=== PATIENT | female | born 1970 | race Caucasian/White ===

== ENCOUNTER → 2018-08-14 | Outpatient (CLI) | payer BC ==
--- NOTE | 2018-08-15 11:26 | MM ---
Reason for exam: screening (asymptomatic). Last mammogram was performed 7 years and 7 months ago. History: Family history of breast cancer in maternal grandmother and breast cancer in maternal aunt at age 32. Benign excisional biopsy of the left breast, 1991. Physical Findings: A clinical breast exam by your physician is recommended on an annual basis and results should be correlated with mammographic findings. MG 3D Screening Mammo W/Cad Bilateral CC and MLO view(s) were taken. Prior study comparison: January 04, 2011, bilateral digital screening mammo w/CAD. The breast tissue is heterogeneously dense. This may lower the sensitivity of mammography. There are layering calcifications bilaterally. Nodular density lower central left breast anterior third position. ASSESSMENT: Incomplete: need additional imaging evaluation, BI-RAD 0 RECOMMENDATION: Special view mammogram and ultrasound of the left breast. [facility] will attempt to contact patient to return for supplemental views and ultrasound.
== END | disposition home or self-care (01) ==
LOC: RADMAMWWP 07:10
PROVIDERS: ATTEND Obstetrics & Gynecology
DX: Z12.31 Encounter for screening mammogram for malignant neoplasm of breast (principal)
CPT/HCPCS: 77063; 77067

== ENCOUNTER → 2018-08-22 | Outpatient (CLI) | payer BC ==
--- NOTE | 2018-08-25 08:59 | MM ---
Reason for exam: additional evaluation requested from abnormal screening. Last mammogram was performed less than 1 month ago. History: Family history of breast cancer in maternal grandmother and breast cancer in maternal aunt at age 32. Benign excisional biopsy of the left breast, 1991. Physical Findings: Nurse Summary: 1cm nodule in the left breast areola (nurse ms). MG 3D Work Up W/Cad LT Spot compression CC, spot compression MLO, and LM view(s) were taken of the left breast. Prior study comparison: August 14, 2018, bilateral MG 3d screening mammo w/cad. January 04, 2011, bilateral digital screening mammo w/CAD. There is a persistent mass at anterior depth in the right lower inner quadrant. There are diffuse predominantly layering calcifications. These results were verbally communicated with the patient and result sheet given to the patient on 08/22/18. ASSESSMENT: Incomplete: need additional imaging evaluation, BI-RAD 0 RECOMMENDATION: Ultrasound of the left breast. (lower inner quadrant and palpable)
--- NOTE | 2018-08-25 09:01 | USB ---
Reason for exam: additional evaluation requested from abnormal screening. History: Family history of breast cancer in maternal grandmother and breast cancer in maternal aunt at age 32. Benign excisional biopsy of the left breast, 1991. US Breast Workup Limited LT Left limited breast ultrasound including focal area of concern, retroareolar and axilla demonstrates a 1.3 x 0.6 x 1.2cm cystic cluster at 12 o'clock, a 1.1 x 0.7 x 0.8cm cystic cluster at 1 o'clock BB and a 0.7 x 0.4 x 0.7cm cystic cluster at 9 o'clock. Appear as benign cyst in dense tissue. Multiple cystic areas visualized. These results were verbally communicated with the patient and result sheet given to the patient on 08/22/18. ASSESSMENT: Benign, BI-RAD 2 RECOMMENDATION: Return to routine screening mammogram schedule for both breasts.
== END | disposition home or self-care (01) ==
LOC: RADMAMWWP 13:44
PROVIDERS: ATTEND Obstetrics & Gynecology
DX: R92.8 Other abnormal and inconclusive findings on diagnostic imaging of breast (principal)
CPT/HCPCS: 77061; 77065

== ENCOUNTER 2024-03-06 10:11 | Day surgery (SDC) | payer BC ==
[2024-03-06] MEDS: IV FLUID CONTINUATION 1,000 ML IV ONE (10:22)
[2024-03-06 10:32] VITALS: TEMP 97.1
[2024-03-06] MEDS: LACTATED RINGERS 1,000 ML IV SCH (10:37)
[2024-03-06] MEDS ORDERED: PROPOFOL 10 MG/ML 20 ML VIAL IV ONE (10:53)
--- NOTE | 2024-03-06 11:14 | P.PCN ---
Date of Procedure: 03/06/24 Procedure(s) Performed: BRIEF HISTORY: Patient is a 54-year-old pleasant white female scheduled for an elective colonoscopy as a part of screening for colon cancer. PROCEDURE PERFORMED: Colonoscopy cold snare polypectomy. PREOPERATIVE DIAGNOSIS: Screening for colon cancer. IV sedation per Anesthesia. PROCEDURE: After informed consent was obtained, the patient, was brought into the endoscopy unit. IV sedation was administered by Anesthesia under continuous monitoring. Digital rectal examination was normal. Initially the Olympus CF-160 flexible video colonoscope was then inserted in the rectum, gradually advanced into the cecum without any difficulty. Careful examination was performed as the scope was gradually being withdrawn. Ileocecal valve and the appendiceal orifice were visualized and appeared normal. Prep was excellent. Mucosa of the cecum, ascending colon, appeared normal. The transverse colon there is a 5 mm polyp that was removed by cold snare polypectomy. History transverse colon, descending colon, sigmoid colon, and rectum appeared normal. Proximal rectum there was a 5 mm polyp removed by cold snare polypectomy. Retroflexion was performed in the rectum and no lesions were seen. The patient tolerated the procedure well. IMPRESSION: 5 mm transverse colon polyp status post cold snare polypectomy 5 mm proximal rectal polyp status post cold snare polypectomy Rest of the colon appeared normal RECOMMENDATIONS: Findings of this examination were discussed with the patient as well as the family. She was advised to follow-up with the biopsy results and if the biopsy reveals adenoma she can have repeat colonoscopy in 5 years.
[2024-03-06 11:40] VITALS: RESP 18
[2024-03-06 11:52] VITALS: BP 149/75; PULSE 75
== END 2024-03-06 12:01 | disposition home or self-care (01) ==
LOC: ORWHC2ENDO 10:11
PROVIDERS: ATTEND Internal Medicine Gastroenterology
DX: Z12.11 Encounter for screening for malignant neoplasm of colon
CPT/HCPCS: 45385; 88305

== ENCOUNTER → 2024-09-04 | Outpatient (CLI) | payer BC ==
--- NOTE | 2024-09-06 13:24 | CT ---
EXAMINATION TYPE: CT abdomen pelvis w con DATE OF EXAM: 09/04/2024 5:54 PM COMPARISON: None. CLINICAL INDICATION: Female, 54 years old with history of R10.9 UNSPECIFIED ABDOMINAL PAIN K59.09 CON STIPATI, Constipation for a week as well as lower abd pain that has now subsided. TECHNIQUE: Axial images were obtained from above the diaphragm to the pubic rami in the axial plane a t 5 mm thick sections. Reconstructed images are reviewed on the computer in the coronal plane. CONTRAST: 100 ml mL of Isovue 300. Study performed with Oral Contrast DLP: 1043.9 mGycm, Automated exposure control for dose reduction was used. FINDINGS: Limited CT sections are obtained the lung bases. The lung bases are clear. CT ABDOMEN: Liver: Normal Spleen: Normal Pancreas: Normal Adrenal glands: The adrenal glands are normal. Gallbladder: Normal Kidneys: No masses are evident. No hydronephrosis is present. No cysts are present. Delayed images were obtained through the kidneys, which remain unremarkable. Aorta: Normal Inferior vena cava: Normal. CT PELVIS: Loops of bowel within the abdomen and pelvis are normal. Multiple diverticula are present within the sigmoid colon. No inflammatory changes adjacent suggesting acute diverticulitis. Loops of bowel in completely distended or lacking oral contrast limiting their evaluation. No significant fecal retenti on. Appendix: Not identified. No dilated tubular structure or inflammatory changes of Urinary bladder: Normal. Genitourinary structures: Uterus appears normal. Adnexa are unremarkable Osseous structures: No suspicious lytic or sclerotic lesions. IMPRESSION: 1. Diverticulosis without acute diverticulitis. [facility], , 09/06/2024 1:21 PM
== END | disposition home or self-care (01) ==
LOC: RADCTMAIN 15:42
PROVIDERS: ATTEND Family Medicine
DX: K57.30 Diverticulosis of large intestine without perforation or abscess without bleeding (principal); K59.09 Other constipation; R10.9 Unspecified abdominal pain
CPT/HCPCS: 74177